=== PATIENT | female | born 1935 | race Caucasian/White ===

== ENCOUNTER 2016-07-02 12:01 | Outpatient (CLI) ==
[2016-07-02 12:36] LABS: BASOPHILS % (AUTO) 1.3 % (0.0-3.0); EOSINOPHILS # (AUTO) 0.1 K/ul (0.0-0.7); EOSINOPHILS % (AUTO) 2.8 % (0.0-7.0); HEMATOCRIT 32.9 % (37.0-47.0); HEMOGLOBIN 10.9 g/dl (12.0-16.0); IMMATURE GRANULOCYTE % (AUTO) 0.3 % (0.0-5.0); LYMPHOCYTES # (AUTO) 0.7 K/uL (0.60-3.4); LYMPHOCYTES % (AUTO) 21.1 (10.0-50.0); MEAN CORPUSCULAR HEMOGLOBIN 31.4 pg (27.0-31.0); MEAN CORPUSCULAR HGB CONC 33.1 (31.8-35.4); MEAN CORPUSCULAR VOLUME 94.8 fl (81.0-99.0); MONOCYTES # (AUTO) 0.5 K/uL (0.4-2.0); MONOCYTES % (AUTO) 16.4 (0-10); NEUTROPHILS # (AUTO) 1.8 K/ul (2.0-6.9); NEUTROPHILS % (AUTO) 58.1; PLATELET COUNT 273 10^3/uL (140-440); RED BLOOD COUNT 3.47 10^6/ul (4.20-5.40); WHITE BLOOD COUNT 3.17 K/ul (4.6-10.2)
[2016-07-02 12:55] LABS: ALBUMIN/GLOBULIN RATIO 0.68; ANION GAP 13.3; BILIRUBIN,TOTAL 0.37 mg/dL (0.00-1.20); CALCIUM 9.5 mg/dL (8.2-10.2); POTASSIUM 4.3 mmol/L (3.5-5.10); TOTAL PROTEIN 7.4 g/dL (5.8-8.1)
[2016-07-02 12:56] LABS: BUN/CREATININE RATIO 22.5; CREATININE 0.8 mg/dL (0.60-1.30)
[2016-07-02 13:07] LABS: ERYTHROCYTE SEDIMENTATION RATE 80 mm/hr (0-20); ESR INTERNAL QC INTERNAL QC VALID
== END 2016-07-02 12:02 | disposition home or self-care (01) ==
LOC: NONPT 12:01
PROVIDERS: ATTEND Family Medicine
DX: A41.9 Sepsis, unspecified organism (principal); L03.115 Cellulitis of right lower limb; Z79.899 Other long term (current) drug therapy
CPT/HCPCS: 80053; 85025; 85651; 86140

== ENCOUNTER 2016-07-12 10:41 | Outpatient (CLI) ==
[2016-07-12 10:50] LABS: BASOPHILS % (AUTO) 0.5 % (0.0-3.0); EOSINOPHILS # (AUTO) 0.1 K/ul (0.0-0.7); EOSINOPHILS % (AUTO) 2.5 % (0.0-7.0); HEMATOCRIT 35.6 % (37.0-47.0); HEMOGLOBIN 11.7 g/dl (12.0-16.0); IMMATURE GRANULOCYTE % (AUTO) 0.2 % (0.0-5.0); LYMPHOCYTES % (AUTO) 22.6 (10.0-50.0); MEAN CORPUSCULAR HEMOGLOBIN 30.5 pg (27.0-31.0); MEAN CORPUSCULAR HGB CONC 32.9 (31.8-35.4); MEAN CORPUSCULAR VOLUME 92.7 fl (81.0-99.0); MONOCYTES # (AUTO) 0.4 K/uL (0.4-2.0); MONOCYTES % (AUTO) 9.5 (0-10); NEUTROPHILS # (AUTO) 2.8 K/ul (2.0-6.9); NEUTROPHILS % (AUTO) 64.7; PLATELET COUNT 229 10^3/uL (140-440); RED BLOOD COUNT 3.84 10^6/ul (4.20-5.40); WHITE BLOOD COUNT 4.33 K/ul (4.6-10.2)
[2016-07-12 11:11] LABS: ALBUMIN 3.1 g/dL (3.4-5.0); ALBUMIN/GLOBULIN RATIO 0.84; ANION GAP 14.5; BILIRUBIN,TOTAL 0.38 mg/dL (0.00-1.20); BUN/CREATININE RATIO 20.51; CALCIUM 9.3 mg/dL (8.2-10.2); CREATININE 0.78 mg/dL (0.60-1.30); POTASSIUM 4.5 mmol/L (3.5-5.10); TOTAL PROTEIN 6.8 g/dL (5.8-8.1)
[2016-07-12 11:24] LABS: ERYTHROCYTE SEDIMENTATION RATE 68 mm/hr (0-20); ESR INTERNAL QC INTERNAL QC VALID
== END 2016-07-12 10:42 | disposition home or self-care (01) ==
LOC: NONPT 10:41
PROVIDERS: ATTEND Internal Medicine Infectious Disease
DX: A41.4 Sepsis due to anaerobes (principal); L03.115 Cellulitis of right lower limb; Z45.2 Encounter for adjustment and management of vascular access device
CPT/HCPCS: 80053; 85025; 85651; 86140

== ENCOUNTER 2016-07-26 14:37 | Outpatient (CLI) | payer OTHER ==
[2016-07-26 14:55] LABS: BASOPHILS % (AUTO) 0.7 % (0.0-3.0); EOSINOPHILS # (AUTO) 0.1 K/ul (0.0-0.7); EOSINOPHILS % (AUTO) 2.6 % (0.0-7.0); HEMATOCRIT 34.6 % (37.0-47.0); HEMOGLOBIN 11.5 g/dl (12.0-16.0); IMMATURE GRANULOCYTE % (AUTO) 0.2 % (0.0-5.0); LYMPHOCYTES # (AUTO) 1.1 K/uL (0.60-3.4); LYMPHOCYTES % (AUTO) 25.5 (10.0-50.0); MEAN CORPUSCULAR HEMOGLOBIN 30.7 pg (27.0-31.0); MEAN CORPUSCULAR HGB CONC 33.2 (31.8-35.4); MEAN CORPUSCULAR VOLUME 92.5 fl (81.0-99.0); MONOCYTES # (AUTO) 0.4 K/uL (0.4-2.0); MONOCYTES % (AUTO) 8.8 (0-10); NEUTROPHILS # (AUTO) 2.6 K/ul (2.0-6.9); NEUTROPHILS % (AUTO) 62.2; PLATELET COUNT 213 10^3/uL (140-440); RED BLOOD COUNT 3.74 10^6/ul (4.20-5.40); WHITE BLOOD COUNT 4.19 K/ul (4.6-10.2)
[2016-07-26 15:05] LABS: ALBUMIN 3.1 g/dL (3.4-5.0); ALBUMIN/GLOBULIN RATIO 0.79; ANION GAP 13.2; BILIRUBIN,TOTAL 0.31 mg/dL (0.00-1.20); CALCIUM 9.1 mg/dL (8.2-10.2); CREATININE 0.75 mg/dL (0.60-1.30); POTASSIUM 4.2 mmol/L (3.5-5.10)
[2016-07-26 15:26] LABS: ERYTHROCYTE SEDIMENTATION RATE 51 mm/hr (0-20); ESR INTERNAL QC INTERNAL QC VALID
== END 2016-07-26 14:38 | disposition home or self-care (01) ==
LOC: NONPT 14:37
PROVIDERS: ATTEND Family Medicine
DX: A41.4 Sepsis due to anaerobes (principal); L03.115 Cellulitis of right lower limb; Z51.81 Encounter for therapeutic drug level monitoring
CPT/HCPCS: 80053; 85025; 85651; 86140

== ENCOUNTER 2017-02-04 10:08 | Outpatient (CLI) ==
--- NOTE | 2017-02-04 11:33 | DEXA ---
EXAM: Bone Densitometry DEXA HISTORY: Postmenopausal COMPARISON: None FINDINGS: DEXA scan of the lumbar spine was performed. Quality of the study is good. Bone mineral density is 1 .814 grams per square centimeter. T-score is 5.3. Z-score is 6.6. DEXA scan left hip was performed. Quality of the study is good. Bone mineral density is 1.062 grams per square centimeter. T-score is 0.4. Z-score is 2.1. Bone mineral density of the femoral neck is 0.969 with a T score of negative 0.5 and a Z score of 1.3. IMPRESSION: 1. Lumbar spine: Normal bone marrow density. 2. Left hip: Normal bone marrow density 3. Left femoral neck: Normal bone marrow density 4. 10 year risk for major osteoporotic fracture is 9.9% and for hip fracture is 1.6%. Reference Values according to World Health Organization criteria: T score greater than -1 is normal T score -1 to -2.5 is osteopenia T score less than -2.5 is osteoporosis.
--- NOTE | 2017-02-04 12:04 | MAMMO ---
EXAM: Bilateral digital screening mammogram (2-D and 3-D) History: Screening Comparison: Bilateral mammogram 02/03/2016 Findings: MLO and CC views of bilateral breasts demonstrate scattered fibroglandular breast parenchy ma. CAD was reviewed by the radiologist. Tomosynthesis was performed. Stable benign bilateral vasc ular calcifications. There are no dominant masses, no suspicious microcalcifications and no architec tural distortions Impression: Benign stable mammogram. Recommend followup routine screening mammography in 1 year. BIRADS 2
== END 2017-02-04 10:09 | disposition home or self-care (01) ==
LOC: RAD 10:08
PROVIDERS: ATTEND Family Medicine
DX: Z12.31 Encounter for screening mammogram for malignant neoplasm of breast (principal); Z78.0 Asymptomatic menopausal state
CPT/HCPCS: 77067

== ENCOUNTER 2018-01-18 09:33 | Outpatient (CLI) | payer OTHER ==
--- NOTE | 2018-01-18 10:45 | MAMMO ---
EXAM: Digital screening mammogram with tomosynthesis HISTORY: Screening COMPARISON: 02/04/2017 FINDINGS: Digital MLO and CC views of the right and left breast were performed. Tomosynthesis was performed. Computer aided detection utilized. There are scattered fibroglandular densities. There is no evidence for mass, asymmetry, distortion, or suspicious calcifications in either breast. IMPRESSION: 1. No evidence of malignancy in the right or left breast. 2. Annual screening mammogram is recommended in one year. BIRADS category 1, negative examination
== END 2018-01-18 09:34 | disposition home or self-care (01) ==
LOC: RAD 09:33
PROVIDERS: ATTEND Family Medicine
DX: Z12.31 Encounter for screening mammogram for malignant neoplasm of breast (principal)
CPT/HCPCS: 77067